=== PATIENT | male | born 1955 | race Caucasian/White ===

== ENCOUNTER 2023-11-19 08:22 | Day surgery (SDC) | payer MEDICARE ==
[~2023-11-19] VITALS: Ht 190.5 cm; Wt 104.0 kg
[~2023-11-19 08:22] MED LIST: GLUCOPHAGE500 MG/TAB PO; HCTZ 25MG TAB25 MG PO; HYDROXYURE500 MG/CAP PO; LR 1,000 ML IV SCH; NORVASC 10MG10 MG PO; Ondansetron 4 MG/2 ML VIAL IV PRN; PRINIVIL20 MG PO; PROTONIX 40MG T40 MG PO
[2023-11-19 09:18] VITALS: BP 163/99; PULSE 59; TEMP 97.6
[2023-11-19] MEDS ORDERED: HYDROXYURE500 MG/CAP PO (09:28)
--- NOTE | 2023-11-19 09:42 | NUR ---
The patient ambulated back to [facility] independently using a steady gait and appeared to tolerate the activty well. Vital signs obtained. Consent signed. 20G IV started in right hand with one stick, LR infusing without difficulty. Assessment completed. Home medications reconcilled. Warm blanket provided. Sister is going to wait in the waiting room during the procedure and will be brought back to his room post. Denies any further needs at this time.
[2023-11-19] MEDS ORDERED: Lidocaine PF 2% (20 MG/ML) 5 ML VIAL ONE (10:05)
[2023-11-19 10:40] VITALS: BP 105/68; PULSE 60
[2023-11-19 10:55] VITALS: BP 112/88; PULSE 54
[2023-11-19 15:06] VITALS: BP 94/71; PULSE 63
--- NOTE | 2023-11-19 17:20 | NUR ---
1040: PT TO [facility] FROM ENDO SUITE. AMBULATED FROM CART TO RECLINER X2 ASSIST. REPORT RECEIVED FROM ENDO NURSE. PT ALERT AND ORIENTED. DENIES PAIN OR NAUSEA. REQUESTING WATER AMD PUDDING. RESTING IN RECLINER. CALL LIGHT IN REACH. SISTER, MEETA, AT BEDSIDE. 1047: DR. TREJO IN TO SPEAK WITH PT. 1055: PT ALERT AND ORIENTED. TOLERATING WATER AND MUFFIN. DENIES PAIN AND NAUSEA. RESTING IN RECLINER. CALL LIGHT IN REACH. SISTER AT BEDSIDE. 1058: DISCHARGE EDUCATION DONE AT THIS TIME. PT STATED UNDERSTANDING OF DC INSTRUCTIONS. DC PAPERWORK GIVEN TO PT. IV DC'D AT THIS TIME. PT DENIES ASSISTANCE WITH DRESSING. 1105: PT AMBULATED INDEPENDENTLY FROM RECLINER TO WHEELCHAIR. PT OFF UNIT AT THIS TIME. PT DC TO HOME WITH SISTER PER PERSONAL VEHICLE.
== END 2023-11-19 11:05 | disposition home or self-care (01) ==
LOC: SDCO 08:22
DX: D50.0 Iron deficiency anemia secondary to blood loss (chronic) (principal); K57.30 Diverticulosis of large intestine without perforation or abscess without bleeding; K64.1 Second degree hemorrhoids; Z87.11 Personal history of peptic ulcer disease; Z85.118 Personal history of other malignant neoplasm of bronchus and lung
CPT/HCPCS: J2704; J7120